=== PATIENT | male | born 1955 | race Caucasian/White ===

== ENCOUNTER 2016-03-20 08:30 | Day surgery (SDC) | payer OTHER ==
[~2016-03-20] VITALS: Ht 175.3 cm; Wt 68.0 kg
[~2016-03-20 08:30] MED LIST: 0.9% Sodium Chloride 1,000 ML IV SCH; ATEN50TA PO; DICY10CA56 PO; FINA5TAB9 PO; HSC.125T PO; HYDR12.55 PO; LOSA100T29 PO; OMEP20CA11 PO; POLY17PO6 PO; SILD20TA14 PO; Sodium Chloride LOK Flush 10 mL Syringe IV PRN; ZOLP3.5T2 SL; fentaNYL-PF 50 mCg/mL 2 mL Inj IVPUSH PRN
[2016-03-20 08:45] VITALS: BP 128/92; PULSE 102; RESP 16; O2SAT 100
[2016-03-20 09:35] VITALS: BP 97/67; PULSE 61; RESP 14; O2SAT 96
[2016-03-20 09:44] VITALS: BP 106/77; PULSE 86; RESP 16; O2SAT 96
--- NOTE | 2016-03-20 10:07 | ENDO ---
[address] [address] ENDOSCOPY PROCEDURE PATIENT: DELORES IRIZARRY : 1955 MR#: [id number] ADMIT: 03/20/2016 JOB ID: [id number] DATE: 03/20/2016 TYPE OF OPERATION: 1. Esophagogastroduodenoscopy with biopsy. 2. Colonoscopy with biopsy. PREOPERATIVE DIAGNOSIS(ES): Bloating and diarrhea. POSTOPERATIVE DIAGNOSIS(ES): 1. Widely open, patent Schatzki ring. 2. Mild nonerosive gastritis. 3. Moderate sigmoid diverticulosis. 4. Melanosis coli. ANESTHESIA: 1. Fentanyl 200 mcg. 2. Versed 10 mg IV administered. COMPLICATIONS: None. BLOOD LOSS: Minimal. DESCRIPTION OF PROCEDURE: After risks and benefits were explained to the patient, informed consent was obtained. After anesthesia administered, an upper endoscope was inserted into the mouth, intubated through the esophagus, stomach, second portion of duodenum. Mucosa carefully examined. After procedure was done, the scope withdrawn and the procedure terminated. After inspection, a colonoscope was then inserted from the rectum to the terminal ileum and mucosa carefully examined. Prep of the patient was excellent. After procedure was done, the scope was withdrawn and procedure terminated. FINDINGS: Upon inspection of the esophagus, it was widely open, patent Schatzki ring in the distal esophagus. Z-line located 40 cm from the incisors. Upon entering the stomach, there was mild nonerosive gastritis that was seen. No masses, ulcers, or lesions were seen. Retroflexion was normal. Duodenal bulb, first and second portion normal. Biopsy was taken of the duodenum, antrum and body of the stomach and distal esophagus. Upon inspection of the anus, no masses, hemorrhoids, ulcers, or fissures that were seen. Throughout the entire examination, there were no polyps, masses or lesions. There was moderate sigmoid diverticulosis and melanosis coli throughout. Biopsies taken at terminal ileum and random colon. Retroflexion was normal. IMPRESSION: 1. Melanosis coli. 2. Moderate sigmoid diverticulosis. 3. Widely open, patent Schatzki ring. 4. Mild nonerosive gastritis. RECOMMENDATION: 1. Await pathology results. 2. Followup in GI clinic as needed.
--- NOTE | 2016-03-21 11:38 | PATH ---
SURGICAL PATHOLOGY Attending Physician:Vinay Peoples MD CASE STATUS: Signed Out PATIENT NAME: DELORES IRIZARRY PID: [id number] : 1955 DATE COLLECTED:03/20/2016 17:50 SPECIMEN: 1: Duodenum, Biopsy 2: Stomach, Antrum, Biopsy 3: Esophagus, Biopsy 4: Esophagus, Biopsy 5: Esophagus, Biopsy 6: Ileum, Biopsy 7: Colon, Biopsy CLINICAL HISTORY: A: DUODENUM BIOPSY B: ANTRUM BIOPSY C: GASTRIC BODY BIOPSY D: DISTAL ESOPHAGUS BIOPSY E: MID ESOPHAGUS BIOPSY F: T I BIOPSY G: RANDOM COLON BIOPSY FINAL DIAGNOSIS: 1.DUODENUM BIOPSY: DUODENAL MUCOSA WITH NO DIAGNOSTIC ALTERATIONS. Negative for inflammation, sprue, dysplasia, and malignancy. 2.ANTRUM BIOPSY: ANTRAL MUCOSA WITH NO DIAGNOSTIC ALTERATIONS. Negative for Helicobacter organisms. Negative for intestinal metaplasia. Negative for dysplasia and malignancy. 3.GASTRIC BODY BIOPSY: GASTRIC BODY MUCOSA WITH NO DIAGNOSTIC ALTERATIONS. Negative for Helicobacter organisms. Negative for intestinal metaplasia. Negative for dysplasia and malignancy. 4.DISTAL ESOPHAGUS BIOPSY: MILD ACTIVE ESOPHAGITIS WITH INCREASED EOSINOPHILS, SEE COMMENT. Negative for intestinal/Nunn' s metaplasia. Negative for dysplasia and malignancy. 5.MID ESOPHAGUS BIOPSY: MILD ACTIVE ESOPHAGITIS WITH INCREASED EOSINOPHILS, SEE COMMENT. Negative for intestinal/Nunn' s metaplasia. Negative for dysplasia and malignancy. 6.T I BIOPSY: NORMAL TERMINAL ILEUM MUCOSA. No inflammation identified. Negative for dysplasia and malignancy. 7.RANDOM COLON BIOPSY: COLONIC MUCOSA WITH MELANOSIS COLI. Negative for colitis, dysplasia and malignancy. ICD10 code K20.0 K63.89 NOTE: Biopsies from the distal esophagus show squamous mucosa with mild inflammatory changes, including eosinophils up to 30 per high-power field. There is mild basal capillary hypertrophy and spongiosis. Similar changes are seen in biopsies from the mid esophagus, although the degree of eosinophilia is less (up to 8 eosinophils per high-power field) and the reactive inflammatory changes are also less than in the distal esophagus. The histologic changes of esophageal eosinophilia can be seen in the setting of reflux esophagitis, eosinophilic esophagitis, medication toxicity, and food allergy. The changes in these biopsies are suggestive of eosinophilic esophagitis, but correlation with clinical and endoscopic findings is necessary for a definitive diagnosis. GROSS DESCRIPTION: The specimen is received in seven formalin filled containers labeled with the patient's name. 1). The specimen is sublabeled "duodenum" and consists of 2 portions of tissue which aggregate to 0.3 x 0.2 x 0.2 CM. The specimen is entirely submitted in cassette 1A. 2). The specimen is sublabeled "antrum" and consists of 2 portions of tissue which aggregate to 0.3 x 0.3 x 0.2 CM. The specimen is entirely submitted in cassette 2A. 3). The specimen is sublabeled "gastric body" and consists of a 0.4 x 0.3 x 0.2 CM portion of tissue which is entirely submitted in cassette 3A. 4). The specimen is sublabeled "distal esophagus" and consists of a 0.2 x 0.2 x 0.2 CM portion of tissue which is entirely submitted in cassette 4A. 5). The specimen is sublabeled "mid esophagus" and consists of 2 portions of tissue which aggregate to 0.6 x 0.3 x 0.2 CM. The specimen is entirely submitted in cassette 5A. 6). The specimen is sublabeled "TI" and consists of a 0.3 x 0.2 x 0.2 CM portion of tissue which is entirely submitted in cassette 6A. 7). The specimen is sublabeled "random colon" and consists of multiple portions of tissue which aggregate to 0.5 x 0.5 x 0.3 CM. The specimen is entirely submitted in cassette 7A 03/20/2016 DAC MICRO DESCRIPTION: See diagnosis. ICD-9 CODES: CPT CODES: 1: 47564 2: 49029 3: 36226 4: 38949 5: 36039 6: 90937 7: 68102 Electronically Signed Out Niecy Jaffe MD [facility] [address], [place] [address] Technical component performed at [facility], [address], [place], [address]
== END 2016-03-20 23:59 | disposition home or self-care (01) ==
LOC: END 08:30
PROVIDERS: ATTEND Internal Medicine Gastroenterology
DX: K63.89 Other specified diseases of intestine (principal); K57.30 Diverticulosis of large intestine without perforation or abscess without bleeding; K29.70 Gastritis, unspecified, without bleeding; K22.2 Esophageal obstruction; R19.7 Diarrhea, unspecified; K59.00 Constipation, unspecified; I10 Essential (primary) hypertension; N40.0 Benign prostatic hyperplasia without lower urinary tract symptoms; R68.81 Early satiety; R14.0 Abdominal distension (gaseous)
CPT/HCPCS: 43239; 45380; 99153; G0500; J2250; J7030